=== PATIENT | female | born 1985 | race Caucasian/White ===

== ENCOUNTER 2016-06-04 16:39 | Emergency (ER) | payer OTHER ==
[~2016-06-04] VITALS: Wt 54.0 kg
[~2016-06-04 16:39] MED LIST: ACET325T33 PO; AZIT250T94 PO
[2016-06-04] MEDS ORDERED: IBUP-1542 PO (17:06)
[2016-06-04] MEDS ORDERED: AZIT250T94 PO (17:06)
[2016-06-04] MEDS ORDERED: FLUT16SP17 NASAL (17:06)
[2016-06-04] MEDS ORDERED: CETI10CA PO (17:07)
[2016-06-04] MEDS ORDERED: ACET500C5 PO (17:07)
--- NOTE | 2016-06-04 17:14 | ERD ---
ER Documentation Chief Complaint Date/Time DATE: 06/04/16 TIME: 17:11 Chief Complaint BILATERAL EAR PAIN LEFT MORE PAINFUL FOR A FEW DAYS. HPI This is a 30-year-old female who presents to the emergency department today complaining of left earache that started last night. She also had a cough for a month. She states she also had some nasal congestion but denies any fevers or chills, nausea vomiting or headache. She has tried Robitussin DM with codeine with no improvement in symptoms. ROS All systems reviewed and are negative except as per history of present illness. Medications Home Meds Active Scripts Cetirizine Hcl* (Zyrtec*) 10 Mg Capsule, 10 MG PO DAILY, #10 TAB.CHEW Prov:ALISA VANEGAS PA-C 06/04/16 Acetaminophen* (Tylophen*) 500 Mg Capsule, 1 CAP PO Q6H Y for PAIN AND OR ELEVATED TEMP, #30 CAP Prov:ALISA VANEGAS PA-C 06/04/16 Ibuprofen* (Motrin*) 600 Mg Tab, 600 MG PO Q6, #30 TAB Prov:ALISA VANEGAS PA-C 06/04/16 Fluticasone Propionate* (Fluticasone Propionate* Nasal) 50 Mcg/[place] - 16 Gm [place].susp, 1 SPRAY NASAL BID, #1 BOTTLE TO EACH NOSTRIL Prov:ALISA VANEGAS PA-C 06/04/16 Azithromycin* (Zithromax*) 250 Mg Tablet, 250 MG PO .ZPACK DIRECTED, #6 TAB TAKE 500 MG (2 TABS) THE FIRST DAY THEN 250 MG (1 TAB) DAYS 2-5 Prov:ALISA VANEGAS PA-C 06/04/16 Acetaminophen* (Tylenol*) 325 Mg Tablet, 1-2 TAB PO Q6 Y for PAIN AND OR ELEVATED TEMP, #20 TAB Prov:TRAM MENDENHALL NP 07/03/15 Azithromycin* (Zithromax*) 250 Mg Tablet, 250 MG PO .ZPACK DIRECTED, #6 TAB TAKE 500 MG (2 TABS) THE FIRST DAY THEN 250 MG (1 TAB) DAYS 2-5 Prov:TRAM MENDENHALL NP 07/03/15 Allergies Allergies: Coded Allergies: No Known Allergy (Unverified , 07/23/13) PMhx/Soc Hx Alcohol Use: No Hx Substance Use: No Hx Tobacco Use: No Physical Exam Vitals Vital Signs Date Time Temp Pulse Resp B/P Pulse Ox O2 Delivery O2 Flow Rate FiO2 06/04/16 16:44 98.8 69 20 111/59 100 Physical Exam Const: Pleasant, no acute distress Head: Atraumatic Eyes: Normal Conjunctiva ENT: Right ear TM normal. Left ear TM erythema. Nose no drainage. Throat mild erythema no exudate Neck: Full range of motion..~ No meningismus. Resp: Clear to auscultation bilaterally. No absent breath sounds. No wheezing. Cardio: Regular rate and rhythm, no murmurs Skin: No petechiae or rashes Neur: Awake and alert Psych: Normal Mood and Affect Procedures/MDM This is a 30-year-old female who presents to the emergency department today complaining of left earache for the past day and cough and congestion for the past month. On physical exam patient did have some TM erythema in her left ear and she has also had a cough with no improvement after taking Robitussin. I will give the patient a prescription for azithromycin to treat otitis media as well as possible bronchitis versus URI. Patient is afebrile here in the emergency department. Her oxygen saturations 100 %. Do not feel the patient requires laboratory workup or imaging. I have low suspicion for strep pharyngitis, peritonsillar abscess, retropharyngeal abscess , PNA, sinusitis, abscess, meningitis, sepsis, or other acute infectious bacterial process. She was given a perception for azithromycin, Tylenol, Motrin, Zyrtec and Flonase. At this time the patient is stable for discharge and outpatient management. They should follow up with their PCP in the next 1-2. They may return to the emergency department sooner if symptoms persist or worsen. Patient understood and agreed with the plan. Departure Diagnosis: Primary Impression: Left ear pain Condition: Fair Patient Instructions: Cough, Chronic, Uncertain Cause, (Adult), Otitis Media, Abx Tx (Adult) Referrals: your PCP Additional Instructions: Call your primary care doctor TOMORROW for an appointment during the next 1-2 days.See the doctor sooner or return here if your condition worsens before your appointment time. Take antibiotics as prescribed Take Tylenol or Motrin for fever or pain Take Flonase and Zyrtec as prescribed Continue taking her Robitussin as prescribed ALISA VANEGAS PA-C Jun 04, 2016 17:14
== END 2016-06-04 17:11 | disposition home or self-care (01) ==
LOC: FTE 16:39 → E/R 17:11
DX: H92.02 Otalgia, left ear (principal)
CPT/HCPCS: 99283